=== PATIENT | male | born 2000 | race Caucasian/White ===

== ENCOUNTER 2021-12-11 00:52 | Emergency (ER) | payer BC ==
[~2021-12-11] VITALS: Ht 188 cm; Wt 74.4 kg
[2021-12-11 00:59] VITALS: BP 145/92
--- NOTE | 2021-12-11 01:04 | NUR ---
patient to lobby
--- NOTE | 2021-12-11 01:37 | NUR ---
PATIENT DISCHARGED BY MALIHA SMITH.
--- NOTE | 2021-12-11 01:37 | NUR ---
SEEN BY MALIHA NO NURSING INTERVENTIONS NEEDED FOR PATIENT
== END 2021-12-11 01:37 | disposition home or self-care (01) ==
LOC: MED 00:52
DX: S00.12XA Contusion of left eyelid and periocular area, initial encounter (principal); W22.8XXA Striking against or struck by other objects, initial encounter; Y93.89 Activity, other specified; Y92.89 Other specified places as the place of occurrence of the external cause; Y99.8 Other external cause status
CPT/HCPCS: 99281